=== PATIENT | male | born 1985 | race American Indian/Alaskan Native ===

== ENCOUNTER 2018-07-22 17:23 | Emergency (ER) | payer OTHER ==
--- NOTE | 2018-07-22 17:31 | Emergency Department Report ---
Blank Doc - Documentation Documentation: This is a 32-year-old male that presents with left side lower abdominal/groin pain with dysuria. Denies any penile discharge. This initial assessment/diagnostic orders/clinical plan/treatment(s) is/are subject to change based on patient's health status, clinical progression and re- assessment by fellow clinical providers in the ED. Further treatment and workup at subsequent clinical providers discretion. Patient/guardians urged not to elope from the ED as their condition may be serious if not clinically assessed and managed. Initial orders include: 1- Patient sent to [facility] for further evaluation and treatment 2- UA 3- GC
[2018-07-22 19:04] LABS: Bilirubin,Urine NEG (Negative); Blood,Urine NEG (Negative); Color,Urine Yellow (Yellow); Mucus,Urine FEW /HPF; Protein,Urine <15 mg/dL mg/dL (Negative); Urobilinogen,Urine < 2.0 mg/dL (<2.0)
[2018-07-22] MEDS ORDERED: ZITHROMAX PO ONE (20:25)
[2018-07-22] MEDS ORDERED: ROCEPHIN IM ONE (20:25)
[2018-07-22] MEDS ORDERED: XYLOCAINE 1% MPF 5 mL INFILTRATI ONE (20:25)
[2018-07-22] MEDS ORDERED: IBUPROFEN PO ONE (20:28)
--- NOTE | 2018-07-22 20:29 | Emergency Department Report ---
ED Male HPI - General Chief complaint: Urogenital-Male Stated complaint: POSS UTI/SIDE PAIN Time Seen by Provider: 07/22/18 17:30 Source: patient Mode of arrival: Ambulatory Limitations: No Limitations - History of Present Illness Initial comments: 32-year-old -[place] male comes in complaining of left side pain and burning with urination. Patient reports this has been going on for 2 weeks. Patient denies any hematuria denies any penile discharge patient reports that the pain is intermittent sharp ache 1 hour then goes away. Patient also reports she is sexually active with females without protection 2 partners in the last 6 months denies any fever or chills or nausea no vomiting. Patient reports no past medical history currently takes no medications on a daily basis and has no known drug allergies. -: week(s) (2) Location: left flank Radiation: none Severity: mild Severity scale (0 -10): 7 Quality: aching, sharp Consistency: intermittent Improves with: none Worsens with: urination new sexual partner dysuria. denies: discharge, mass, rash, urinary retention, blood in urine, fever, nausea/vomiting, incontinence - Related Data Sexually active: Yes (female two partners last 6 months unprotected) Previous Rx's Medication Instructions Recorded Last Taken Type Ibuprofen [Motrin 600 MG tab] 600 mg PO Q8H PRN #15 tablet 07/22/18 Unknown Rx Allergies Allergy/AdvReac Type Severity Reaction Status Date / Time No Known Allergies Allergy Unverified 07/22/18 17:27 ED Review of Systems ROS: Stated complaint: POSS UTI/SIDE PAIN Other details as noted in HPI Comment: All other systems reviewed and negative Genitourinary: dysuria ED Past Medical Hx - Past Medical History Previous Medical History?: No - Surgical History Past Surgical History?: No - Social History Smoking Status: Never Smoker Substance Use Type: None - Medications Home Medications: Home Medications Medication Instructions Recorded Confirmed Last Taken Type Ibuprofen [Motrin 600 MG tab] 600 mg PO Q8H PRN #15 tablet 07/22/18 Unknown Rx ED Physical Exam - General Limitations: No Limitations General appearance: alert, in no apparent distress - Head Head exam: Present: atraumatic, normocephalic - Eye Eye exam: Present: normal appearance - ENT ENT exam: Present: mucous membranes moist - Neck Neck exam: Present: normal inspection - Respiratory Respiratory exam: Present: normal lung sounds bilaterally, chest wall tenderness (left rib tip tenderness to palpate). Absent: respiratory distress - Cardiovascular Cardiovascular Exam: Present: regular rate, normal rhythm. Absent: systolic murmur, diastolic murmur, rubs, gallop - GI/Abdominal GI/Abdominal exam: Present: soft, normal bowel sounds - Rectal Rectal exam: Present: deferred - exam: Present: normal inspection, circumcision. Absent: testicular tenderness, urethral discharge, scrotal swelling External exam: Present: normal external exam. Absent: erythema, swelling - Extremities Exam Extremities exam: Present: normal inspection - Back Exam Back exam: Present: normal inspection - Neurological Exam Neurological exam: Present: alert, oriented X3 - Psychiatric Psychiatric exam: Present: normal affect, normal mood - Skin Skin exam: Present: warm, dry, intact, normal color. Absent: rash ED Course Vital Signs 07/22/18 17:30 Temperature 98 F Pulse Rate 94 H Respiratory 16 Rate Blood Pressure 144/76 O2 Sat by Pulse 100 Oximetry ED Medical Decision Making - Medical Decision Making Patient has been evaluated by this provider in [facility]. Provider obtain gonorrhea and chlamydia cultures sent to lab. Patient requesting to be treated for gonorrhea and chlamydia as he's had a new partner unprotected. Patient be given Rocephin 250 mg IM and a azithromycin 100 mg by mouth. Discussed patient importance of following up at the health department for HIV herpes hepatitis syphilis. Patient verbalizes understanding. Critical care attestation.: If time is entered above; I have spent that time in minutes in the direct care of this critically ill patient, excluding procedure time. ED Disposition Clinical Impression: Dysuria, Possible exposure to STD, Acute costochondritis Disposition: -01 TO HOME OR SELFCARE Is pt being admited?: No Does the pt Need Aspirin: No Condition: Stable Instructions: Safe Sex (ED), Sexually Transmitted Diseases (ED) Additional Instructions: Please take pain medication as prescribed. Please follow-up at the health Department to have further testing for HIV, herpes, hepatitis, syphilis. Please refrain from intercourse for 2 weeks please use condoms to prevent transmission of STDs. You can return back to the hospital medical records within 5-7 days with your ID to obtain the results for your Chlamydia and gonorrhea. Prescriptions: Ibuprofen [Motrin 600 MG tab] 600 mg PO Q8H PRN #15 tablet PRN Reason: Pain , Severe (7-10) Referrals: [facility], [place] [Primary Care Provider] - 3-5 Days [facility] [Outside] - 3-5 Days [facility] [Outside] - 3-5 Days [facility] [Outside] - 3-5 Days
[2018-07-22 20:46] VITALS: BP 129/73
== END 2018-07-22 20:55 | disposition home or self-care (01) ==
LOC: ED 17:23
DX: R30.0 Dysuria (principal); R10.9 Unspecified abdominal pain; M94.0 Chondrocostal junction syndrome [Tietze]
CPT/HCPCS: 81001; 87591; 96372; 99283; J0696